=== PATIENT | male | born 1950 | race Caucasian/White ===

== ENCOUNTER 2017-09-08 10:40 | Day surgery (SDC) | payer MEDICARE ==
[2017-09-07 10:23] VITALS: BMI 39.3
[2017-09-08] MEDS ORDERED: Oxymetazoline HCl 0.05% ( 15 ML ) ONE ×2 (10:55→13:57)
[2017-09-08 11:57] LABS: Hemoglobin 15.4 g/dL (14.0-18.0)
[2017-09-08 12:22] LABS: Anion Gap 12 mmol/L (10-20); BUN (Urea Nitrogen) 18 mg/dL (8.4-25.7); Calc. Creatinine Clearance 140 mL/min (70-130); Calcium 9.9 mg/dL (7.8-10.44); Carbon Dioxide 31 mmol/L (23-31); Chloride 102 mmol/L (98-107); Estimated GFR-MDRD 76; Glucose 119 mg/dL (80-115); Potassium 4.9 mmol/L (3.5-5.1); Sodium 140 mmol/L (136-145)
[2017-09-08] MEDS ORDERED: Famotidine/PF 20 mg/2ml Vial ONE (13:08)
[2017-09-08] MEDS ORDERED: Fentanyl 100 MCG/2 ML VIAL ONE (13:08)
[2017-09-08] MEDS ORDERED: Ondansetron HCl/PF 4 MG/2 ML Vial ONE ×2 (13:08→16:14)
[2017-09-08] MEDS ORDERED: Midazolam HCl 2 mg/2 ml Vial ONE (13:54)
[2017-09-08] MEDS ORDERED: Lidocaine 1% w/Epinephrine 1:200K 30 ML VIAL ONE (13:57)
[2017-09-08] MEDS ORDERED: Albuterol Sulfate 1.25 MG/3 ML NEB ONE (15:41)
--- NOTE | 2017-09-08 15:48 | EKG ---
Test Reason : PREOP Blood Pressure : / mmHG Vent. Rate : 072 BPM Atrial Rate : 072 BPM P-R Int : 152 ms QRS Dur : 084 ms QT Int : 386 ms P-R-T Axes : 054 -20 014 degrees QTc Int : 422 ms Normal sinus rhythm Normal ECG Confirmed by LUDWIG ZAPATA ([id number]) on 09/08/2017 3:48:34 PM Referred By: JAVI Confirmed By:LUDWIG ZAPATA
[2017-09-08] MEDS ORDERED: Lidocaine 1% PF 5 ML VIAL ONE (16:14)
[2017-09-08] MEDS ORDERED: Succinylcholine Chloride 20 MG/ML 10 ml SYRINGE FS ONE (16:14)
[2017-09-08] MEDS ORDERED: PROPOFOL 200 MG/20 ML VIAL ONE (16:14)
[2017-09-08] MEDS ORDERED: Dexamethasone 20 MG/5 ML VIAL ONE (16:14)
--- NOTE | 2017-09-08 20:17 | OP ---
PREOPERATIVE DIAGNOSES: 1. Chronic rhinosinusitis. 2. Bilateral middle turbinate wong bullosa. POSTOPERATIVE DIAGNOSES: 1. Chronic rhinosinusitis. 2. Bilateral middle turbinate wong bullosa. PROCEDURES: 1. Bilateral endoscopic sinus surgery, total ethmoidectomies. 2. Bilateral endoscopic sinus surgery, maxillary antrostomies. 3. Bilateral endoscopic sinus surgery, frontal sinusotomies. SURGEON: Mohsen Phan M.D. ESTIMATED BLOOD LOSS: 10 mL COMPLICATIONS: None. ANESTHESIA: GETA. BRIEF HISTORY: This is a gentleman who had previously undergone in office bilateral middle turbinate wong bullosa resection and balloon sinuplasty, still had persistent headaches and sinus symptoms. Risks, benefits, and alternatives of this more open approach were discussed with him. He is very ea caitie to proceed. DESCRIPTION OF PROCEDURE: The patient was taken to the operating room and placed supine on the table . General endotracheal anesthesia was obtained by the Anesthesia staff. Tube was secured in the lef t lower lip. The patient was placed in the beach chair position. Following this, Afrin pledgets wer e placed in the nasal cavity, and the patient was prepped and draped for standard nasal procedure. F ollowing this, the Afrin pledgets were removed. 0 degree scope was used to inject 1% lidocaine with 1:100,000 epinephrine via 27 gauge needle into the middle turbinates and lateral nasal wall bilateral ly. Following this, the 0 degree scope was used to visualize the nasal cavity. There was minor remn ants of the wong bullosa lateral wall, which were further resected using the microdebrider. Follow ing this, the uncinate process was anteriorly fractured using ball-ended probe and then removed using the straight microdebrider and the curved Blaravindraley forceps. Following this, an anterior maxillary sinus ostia was identifiable with the ball-ended probe and was then gently widened using straight gre en wall forceps and microdebrider. Following this, the curved microdebrider was used to remove a tow el clip cyst from the floor of the right maxillary sinus as well as the left maxillary sinus. Follow ing this, the ethmoidal bulla was punctured on its medial and inferior aspect with the microdebrider and was removed. Following this, the grand lamella was identified and was punctured in the posterior ethmoidal cells. Working from posterior to anterior, the ethmoidal cells were opened in a mucosal-s paring technique. Following this, the curved microdebrider and the 45 degree endoscope were then use d to further resect and open the frontal sinus recess and frontal sinus ostia bilaterally. Following this, the nasal cavity was irrigated. MeroPacks were placed in the middle meatus. The patient paytone rated the procedure well.
== END 2017-09-08 17:07 | disposition home or self-care (01) ==
LOC: SDC 10:40
PROVIDERS: ATTEND Otolaryngology Plastic Surgery within the Head & Neck
PROC: 099R8ZZ Drainage of Left Maxillary Sinus, Via Natural or Artificial Opening Endoscopic (ICD-10-PCS; principal; 2017-09-08)
PROC: 099Q8ZZ Drainage of Right Maxillary Sinus, Via Natural or Artificial Opening Endoscopic (ICD-10-PCS; 2017-09-08)
PROC: 09TV8ZZ Resection of Left Ethmoid Sinus, Via Natural or Artificial Opening Endoscopic (ICD-10-PCS; 2017-09-08)
PROC: 09TU8ZZ Resection of Right Ethmoid Sinus, Via Natural or Artificial Opening Endoscopic (ICD-10-PCS; 2017-09-08)
PROC: 09BT8ZZ Excision of Left Frontal Sinus, Via Natural or Artificial Opening Endoscopic (ICD-10-PCS; 2017-09-08)
PROC: 09BS8ZZ Excision of Right Frontal Sinus, Via Natural or Artificial Opening Endoscopic (ICD-10-PCS; 2017-09-08)
DX: J32.9 Chronic sinusitis, unspecified (principal); J34.9 Unspecified disorder of nose and nasal sinuses; I10 Essential (primary) hypertension; L71.9 Rosacea, unspecified; N40.0 Benign prostatic hyperplasia without lower urinary tract symptoms; Z79.2 Long term (current) use of antibiotics; Z79.899 Other long term (current) drug therapy; Z88.0 Allergy status to penicillin; Z98.84 Bariatric surgery status; Z96.651 Presence of right artificial knee joint; Z90.89 Acquired absence of other organs; Z90.49 Acquired absence of other specified parts of digestive tract; Z98.890 Other specified postprocedural states
CPT/HCPCS: 80048; 85014; 85018; 93005; 93010; J0131; J1100; J2001; J2250; J2405; J2704; J3010; S0028

== ENCOUNTER 2019-05-10 10:11 | Outpatient (CLI) | payer MEDICARE ==
[2019-05-10 11:51] LABS: Hemoglobin 14.8 g/dL (14.0-18.0); Mean Corpuscular HGB CONC 31.8 g/dL (32.0-36.0); Mean Corpuscular Hemoglobin 29.8 pg (27.0-31.0); Mean Corpuscular Volume 93.7 fL (78.0-98.0); Mean Platelet Volume 7.9 fL (7.4-10.4); Platelet Count 220 thou/uL (130-400); RBC Distribution Width 12.7 % (11.5-14.5); Red Blood Cell (RBC) Count 4.95 mill/uL (4.70-6.10); White Blood Cell (WBC) Count 10.2 thou/uL (4.8-10.8)
[2019-05-10 12:12] LABS: Anion Gap 13 mmol/L (10-20); BUN (Urea Nitrogen) 17 mg/dL (8.4-25.7); Calc. Creatinine Clearance 0 mL/min (70-130); Calcium 9.3 mg/dL (7.8-10.44); Carbon Dioxide 26 mmol/L (23-31); Chloride 103 mmol/L (98-107); Estimated GFR-MDRD Greater than 90; Glucose 100 mg/dL (80-115); Potassium 4.2 mmol/L (3.5-5.1); Sodium 138 mmol/L (136-145)
== END 2019-05-10 10:12 | disposition home or self-care (01) ==
LOC: LABBT 10:11
PROVIDERS: ATTEND Neurological Surgery
DX: Z01.818 Encounter for other preprocedural examination (principal); M54.12 Radiculopathy, cervical region
CPT/HCPCS: 80048; 85027; 93005; 93010

== ENCOUNTER 2019-07-13 13:54 | Outpatient (CLI) | payer MEDICARE ==
--- NOTE | 2019-07-13 15:06 | ULT ---
CAROTID DOPPLER: Date: 07/13/19 PROVIDED CLINICAL HISTORY: Stroke. FINDINGS: Deleon scale and color Doppler sonography with spectral analysis was performed of the extracranial enrique tid system. No significant atherosclerotic plaque is identified. There is nonspecific mild elevation of peak systolic velocity within the left proximal internal carotid artery with an ICA/CCA ratio of 1 .16 and a peak systolic velocity of 135 cm/second. Antegrade flow is seen in the vertebral arteries. Velocities within the right internal carotid artery appear normal. IMPRESSION: Mild nonspecific elevation of peak systolic velocity within the left internal carotid artery without corresponding elevation of ICA/CCA ratio. POS: OFF
== END 2019-07-13 13:55 | disposition home or self-care (01) ==
LOC: BICULT 13:54
PROVIDERS: ATTEND Psychiatry & Neurology Neurology
DX: I66.02 Occlusion and stenosis of left middle cerebral artery (principal)
CPT/HCPCS: 93880

== ENCOUNTER 2019-07-25 14:27 | Outpatient (CLI) | payer MEDICARE ==
--- NOTE | 2019-07-25 14:46 | RAD ---
EXAM: 4 view cervical spine PROVIDED CLINICAL HISTORY: Neck pain COMPARISON: 06/01/2019 FINDINGS: Cervical alignment appears normal. Vertebral body heights are preserved. ACDF changes are again seen at C4-5. No prevertebral soft tissue swelling apparent. Visualized lung apices appear clear. Cervical degenerative changes are redemonstrated. IMPRESSION: Stable exam.
== END 2019-07-25 14:28 | disposition home or self-care (01) ==
LOC: TBSIIMAG 14:27
PROVIDERS: ATTEND Neurological Surgery
DX: M54.2 Cervicalgia (principal)
CPT/HCPCS: 72040

== ENCOUNTER 2019-09-21 13:26 | Outpatient (CLI) | payer MEDICARE ==
--- NOTE | 2019-09-21 15:03 | MRI ---
MRI of thebrain: 09/21/2019 COMPARISON:None available HISTORY:Slurred speech, abnormal head CT on 06/30/2019 TECHNIQUE: Multiplanar multisequence MR imaging of thebrain with and without contrast Findings:The diffusion weighted imaging demonstrates no evidence for acute infarction. The axial grad ient echo imaging demonstrates no evidence for intracranial hemorrhage. There is polypoid mucosal thickening involving the alveolar recess of the maxillary sinus on the righ t. Imaged paranasal sinuses and mastoid air cells are grossly unremarkable otherwise. There is a focal area of encephalomalacia involving the periventricular white matter adjacent to the mid body of the left lateral ventricle measuring 1.4 cm. No abnormal enhancement is seen in this region. This suggests an area of prior ischemia. A degree of this signal abnormality could be related to prominent perivascular space as well. The postcontrast imaging demonstrates no abnormal enhancement within the brain parenchyma. Arterial flow voids at the axial level of the skull base appear grossly unremarkable on the T2-weight ed imaging. There is multifocal periventricular, deep, and subcortical white matter T2 and FLAIR hyperintensity, evidence of small vessel disease. The area of encephalomalacia seen on today's examination in the periventricular white matter adjacent to the body of the left lateral ventricle is in the area of prior abnormality seen on the prior head CT. IMPRESSION:Chronic findings as described above. No acute findings are seen.
== END 2019-09-21 13:27 | disposition home or self-care (01) ==
LOC: MRI 13:26
PROVIDERS: ATTEND Nurse Practitioner Family
DX: D43.2 Neoplasm of uncertain behavior of brain, unspecified (principal); J34.89 Other specified disorders of nose and nasal sinuses; G93.89 Other specified disorders of brain
CPT/HCPCS: 70553; 82565